=== PATIENT | male | born 1995 | race African-American/Black ===

== ENCOUNTER 2017-01-15 10:49 | Emergency (ER) | payer SELFPAY ==
[~2017-01-15] VITALS: Ht 167.6 cm; Wt 70.3 kg
[2017-01-15 12:07] VITALS: BP 102/76
== END 2017-01-15 13:19 | disposition home or self-care (01) ==
LOC: ER 10:49
DX: S61.211A Laceration without foreign body of left index finger without damage to nail, initial encounter (principal); W26.0XXA Contact with knife, initial encounter; Y93.89 Activity, other specified; Y99.8 Other external cause status; Y92.89 Other specified places as the place of occurrence of the external cause; F12.10 Cannabis abuse, uncomplicated
CPT/HCPCS: 12001